=== PATIENT | male | born 1965 | race American Indian/Alaskan Native ===

== ENCOUNTER 2021-09-10 09:51 | Emergency (ER) | payer OTHER ==
[2021-09-10] MEDS ORDERED: TETANUS,DIPH,PERTUSS(ACELL) VACCINE 0.5 ML SYRINGE IM ONE (14:26)
--- NOTE | 2021-09-10 14:57 | XRay Report ---
XR tibia fibula 2V RT INDICATION / CLINICAL INFORMATION: right leg lac. COMPARISON: None available. FINDINGS: Soft tissue swelling related to patient's known laceration. No acute fracture. Normal alignment. Camille int spaces are preserved. No destructive osseous lesion or suspicious periosteal reaction. Impression: 1.No acute fracture. Signer Name: Clay Mccauley MD Signed: 09/10/2021 2:52 PM Workstation Name: [id number]
[2021-09-10] MEDS ORDERED: LIDOCAINE 2%/EPINEPHRINE 1:200,000 VIAL (20 ML) INFILTRATI ONE (15:08)
--- NOTE | 2021-09-10 16:39 | Emergency Department Report ---
- General Chief Complaint: Extremity Injury, Lower Stated Complaint: RT LEG LAC Time Seen by Provider: 09/10/21 14:26 Source: patient Mode of arrival: Ambulatory Limitations: No Limitations - History of Present Illness Initial Comments: This is a 55-year-old male nontoxic, well nourished in appearance, no acute signs of distress presents to the ED with c/o of right tib-fib laceration that occurred today prior to arrival. Patient stated that while on duty at work a metal shelf caused the laceration. Patient denies decreased sensation or range of motion. Patient stated bleeding is under control. Denies any numbness, tingling, fever, chills, nausea, vomiting, chest pain, shortness of breath, headache or stiff neck. Patient denies any allergies to significant past medica l history. Patient is that he is not up-to-date with tetanus. -: This morning Extremity Location: Right: Lower Leg Place: work Patient Tetanus UTD: No Context: accidental Associated Symptoms: pain. denies: loss of feeling/numbness, suspect foreign body present, unable to move injured part, weakness followed by dizziness, nausea/vomiting, fever - Related Data Previous Rx's Medication Instructions Recorded Last Taken Type Acetaminophen/Codeine [Tylenol 1 tab PO Q6H PRN #12 tab 09/10/21 Unknown Rx /Codeine # 3 tab] Sulfamethoxazole/Trimethoprim 1 each PO BID #14 tab 09/10/21 Unknown Rx [Bactrim DS TAB] Allergies Allergy/AdvReac Type Severity Reaction Status Date / Time No Known Allergies Allergy Unverified 09/10/21 09:54 ED Review of Systems ROS: Stated complaint: RT LEG LAC Other details as noted in HPI Comment: All other systems reviewed and negative Constitutional: denies: chills, fever Eyes: denies: eye pain, eye discharge, vision change ENT: denies: ear pain, throat pain Respiratory: denies: cough, shortness of breath, wheezing Cardiovascular: denies: chest pain, palpitations Endocrine: no symptoms reported Gastrointestinal: denies: abdominal pain, nausea, diarrhea Genitourinary: denies: urgency, dysuria Musculoskeletal: denies: back pain, joint swelling, arthralgia Skin: denies: rash, lesions Neurological: denies: headache, weakness, paresthesias Psychiatric: denies: anxiety, depression Hematological/Lymphatic: denies: easy bleeding, easy bruising ED Past Medical Hx - Past Medical History Previous Medical History?: No - Surgical History Past Surgical History?: No - Medications Home Medications: Home Medications Medication Instructions Recorded Confirmed Last Taken Type Acetaminophen/Codeine [Tylenol 1 tab PO Q6H PRN #12 tab 09/10/21 Unknown Rx /Codeine # 3 tab] Sulfamethoxazole/Trimethoprim 1 each PO BID #14 tab 09/10/21 Unknown Rx [Bactrim DS TAB] ED Physical Exam - General Limitations: No Limitations General appearance: alert, in no apparent distress - Head Head exam: Present: atraumatic, normocephalic - Eye Eye exam: Present: normal appearance - Neck Neck exam: Present: normal inspection, full ROM. Absent: lymphadenopathy - Respiratory Respiratory exam: Absent: respiratory distress - Cardiovascular Cardiovascular Exam: Present: regular rate - Extremities Exam Extremities exam: Present: normal inspection, full ROM, tenderness, normal capillary refill. Absent: joint swelling - Expanded Lower Extremity Exam Right Hip exam: Present: normal inspection, full ROM. Absent: tenderness, swelling Upper Leg exam: Present: normal inspection, full ROM Knee exam: Present: normal inspection, full ROM. Absent: tenderness Lower Leg exam: Present: full ROM, tenderness, laceration (4 inch superiofical liner ). Absent: swelling, abrasion, ecchymosis, deformity, crepidus, dislocation, erythema, palpable cord, Miriam's sign Ankle exam: Present: normal inspection, full ROM. Absent: tenderness, swelling Foot/Toe exam: Present: normal inspection, full ROM. Absent: tenderness, swelling Neuro vascular tendon exam: Present: no vascular compromise Gait: Positive: observed and normal 1 - lac here - Back Exam Back exam: Present: full ROM - Neurological Exam Neurological exam: Present: alert, oriented X3, normal gait - Psychiatric Psychiatric exam: Present: normal affect, normal mood - Skin Skin exam: Present: warm, dry, intact, normal color. Absent: rash ED Course Vital Signs 09/10/21 09:57 Temperature 97.8 F Pulse Rate 86 Respiratory 20 Rate Blood Pressure 181/103 [Right] O2 Sat by Pulse 99 Oximetry - Reevaluation(s) Reevaluation #1: 09/10/21 16:38 Patient is speaking in full sentences with no signs of distress noted. - Laceration /Wound Repair Right Leg Wound Location: lower extremity (right leg) Wound Length (cm): 4 (inches) Wound's Depth, Shape: superficial, linear Wound Explored: clean Irrigated w/ Saline (ccs): 40 Betadine Prep?: Yes Volume Anesthetic (ccs): 4 (2% lidocaine plain) Number of Sutures: 10 (hemanth) Layer Closure?: Yes Deep Layer Suture Size/Type: 3:0 (Vicryl) Number Deep Layer Sutures: 3 Sterile Dressing Applied?: Yes Progress: Under sterile field, I used Betadine to clean the area. I then used 40 mL of normal saline to flush the area. I then used 2% lidocaine plain and injected 5 mL to the wound. I then used a 3-0 Vicryl for deeper dermis with total of 3 stitches placed. I then used hemanth and applied 10 hemanth to the laceration site. I then applied a sterile 4 x 4 with tape. Minimal bleeding noted but is under control. Patient tolerated procedure well with no signs of distress. ED Medical Decision Making - Radiology Data [facility] [address] [place] [address] XRay Report Signed Patient: MINERVA READ MR#: [id number] : 1965 Acct:[id number] Age/Sex: 55 / M ADM Date: 09/10/21 Loc: ED Attending Dr: Ordering Physician: SULEMAN STRATTON NP Date of Service: 09/10/21 Procedure(s): XR tibia fibula 2V RT Accession Number(s): [id number] cc: SULEMAN STRATTON NP Fluoro Time In Minutes: XR tibia fibula 2V RT INDICATION / CLINICAL INFORMATION: right leg lac. COMPARISON: None available. FINDINGS: Soft tissue swelling related to patient's known laceration. No acute fracture. Normal alignment. Joint spaces are preserved. No destructive osseous lesion or suspicious periosteal reaction. Impression: 1.No acute fracture. Signer Name: Clay Mccauley MD Signed: 09/10/2021 2:52 PM Workstation Name: [id number] Transcribed By: TRACEE Dictated By: Clay Mccauley MD Electronically Authenticated By: Clay cMcauley MD Signed Date/Time: 09/10/211451 DD/ 51 TD/TT: - Medical Decision Making This is a 55-year-old male that presents with laceration. Patient is stable and was examined by me. The laceration stapling has been performed and has been performed and patient tolerated well. A sterile dressing has been applied. Patient was educated on proper wound care. Patient is discharged with Bactrim and Tylenol with codeine and was instructed not to operate any machinery while taking Tylenol with codeine due to drowsiness. Patient was instructed to return in 10 days for suture removal. Patient was instructed to refer to Follow-up with a primary care doctor in 3-5 days or if symptoms worsen and continue return to emergency room as soon as possible. At time of discharge, the patient does not seem toxic or ill in appearance. No acute signs of distress noted. Patient agrees to discharge treatment plan of care. No further questions noted by the patient. Critical care attestation.: If time is entered above; I have spent that time in minutes in the direct care of this critically ill patient, excluding procedure time. ED Disposition Clinical Impression: Laceration of right lower leg Qualifiers: Encounter type: initial encounter Qualified Code(s): S81.811A - Laceration without foreign body, right lower leg, initial encounter Disposition: HOME / SELF CARE / HOMELESS Is pt being admited?: No Does the pt Need Aspirin: No Condition: Stable Instructions: Laceration Care, Adult Additional Instructions: Follow-up with a primary care doctor in 3-5 days or if symptoms worsen and continue return to emergency room as soon as possible. Do not operate any machinery while taking Tylenol with codeine as this may cause drowsiness. Return in 10 days for staple removal. Prescriptions: Sulfamethoxazole/Trimethoprim [Bactrim DS TAB] 1 each PO BID #14 tab Acetaminophen/Codeine [Tylenol /Codeine # 3 tab] 1 tab PO Q6H PRN #12 tab PRN Reason: Pain , Severe (7-10) Referrals: DAXA AARON MD [Primary Care Provider] - 3-5 Days PRIMARY MD SIMEON [Referring] - 3-5 Days Forms: Work/School Release Form(ED) Time of Disposition: 16:43
[2021-09-10 17:06] VITALS: BP 149/95
== END 2021-09-10 17:05 | disposition home or self-care (01) ==
LOC: ED 09:51
DX: S81.811A Laceration without foreign body, right lower leg, initial encounter (principal); W45.8XXA Other foreign body or object entering through skin, initial encounter; Y93.89 Activity, other specified; Y92.89 Other specified places as the place of occurrence of the external cause; Y99.8 Other external cause status
CPT/HCPCS: 12042; 73590; 90471; 90715; 99283; J3490